=== PATIENT | female | born 1975 | race Caucasian/White ===

== ENCOUNTER 2016-11-07 15:59 | Emergency (ER) | payer OTHER ==
[~2016-11-07] VITALS: Ht 167.6 cm; Wt 86.0 kg
[2016-11-07] MEDS ORDERED: IBUPROFEN 800MG TABLET PO ONE (18:30)
[2016-11-07] MEDS ORDERED: HYDROCODONE/ACETAMINOPHEN 5/325MG TABLET PO ONE (22:00)
[2016-11-08 00:12] VITALS: BP 124/67
== END 2016-11-08 00:41 | disposition home or self-care (01) ==
LOC: ER 16:17
DX: M54.2 Cervicalgia (principal); E11.9 Type 2 diabetes mellitus without complications; V49.40XA Driver injured in collision with unspecified motor vehicles in traffic accident, initial encounter; Y93.89 Activity, other specified; Y92.89 Other specified places as the place of occurrence of the external cause; Y99.8 Other external cause status
CPT/HCPCS: 71010; 72125; 73030; 81025; 99284; Z7610; A4565